=== PATIENT | male | born 1995 | race Caucasian/White ===

== ENCOUNTER 2024-11-30 17:00 | Emergency (ER) | payer MEDICAID ==
[~2024-11-30] VITALS: Ht 170.2 cm; Wt 65.0 kg
[2024-11-30 17:01] VITALS: O2SAT 98
[2024-11-30 19:58] LABS: BASOPHILS % 0.4 % (0.0-2.0); EOSINOPHILS % 0.2 % (0.0-5.0); HEMATOCRIT. 44.4 % (42.0-52.0); HEMOGLOBIN. 14.8 g/dL (14.0-18.0); LYMPHOCYTES % 10.7 % (20.0-50.0); MEAN CORPUSCULAR HEMOGLOBIN 30.6 pg (28.0-32.0); MEAN CORPUSCULAR HGB CONC 33.4 g/dL (31.0-37.0); MEAN CORPUSCULAR VOLUME 91.4 fL (80.0-94.0); MEAN PLATELET VOLUME 7.9 fl (7.4-10.4); MONOCYTES % 3.7 % (2.0-8.0); PLATELET 311 x1000/uL (130-400); RED BLOOD CELL COUNT 4.86 mill/uL (4.7-6.1); WHITE BLOOD COUNT 13.1 x1000/uL (4.5-11.0)
[2024-11-30 20:04] LABS: CARBON DIOXIDE 24 mEq/L (21-32); CHLORIDE 106 mEq/L (98-107); POTASSIUM 3.6 mEq/L (3.5-5.1); SODIUM 139 mEq/L (136-145)
[2024-11-30 20:05] LABS: CALCIUM 9.8 mg/dL (8.7-10.4)
[2024-11-30 20:09] LABS: CREATININE 0.8 mg/dL (0.6-1.3); GLUCOSE 106 mg/dL (70-105)
[2024-11-30 20:10] LABS: UREA NITROGEN BLOOD 7 mg/dL (9-23)
[2024-11-30 20:11] LABS: TROPONIN I HIGH SENSITIVITY 4 ng/L (3.0-53)
[2024-11-30 20:12] LABS: PHOSPHORUS 2.7 mg/dL (2.5-4.9)
[2024-11-30 20:36] VITALS: BP 139/95; PULSE 83; RESP 20; TEMP 37; O2SAT 98
[2024-12-01] MEDS ORDERED: IBUP-2029 MT (06:07)
== END 2024-11-30 20:44 | disposition home or self-care (01) ==
LOC: ER 17:00
DX: F12.10 Cannabis abuse, uncomplicated (principal); F41.1 Generalized anxiety disorder
CPT/HCPCS: 36415; 71045; 80048; 80320; 83735; 84100; 84484; 85025; 99284; G0480

== ENCOUNTER 2024-12-01 01:16 | Emergency (ER) | payer MEDICAID ==
[~2024-12-01] VITALS: Ht 167.6 cm; Wt 80.0 kg
[2024-12-01 01:29] VITALS: O2SAT 99
[2024-12-01] MEDS: IBUPROFEN 600MG TABLET PO ONE (02:13)
[2024-12-01] MEDS ORDERED: IBUP-2029 MT (06:07)
[2024-12-01 06:20] VITALS: BP 141/76; PULSE 66; RESP 17; TEMP 36.8; O2SAT 99
== END 2024-12-01 06:20 | disposition home or self-care (01) ==
LOC: ER 01:16
DX: M79.10 Myalgia, unspecified site (principal); F41.9 Anxiety disorder, unspecified; R42 Dizziness and giddiness
CPT/HCPCS: 99282

== ENCOUNTER 2025-02-18 08:09 | Emergency (ER) | payer MEDICAID ==
[~2025-02-18] VITALS: Ht 170.2 cm; Wt 73.0 kg
[~2025-02-18 08:09] MED LIST: IBUP-2029 MT
[2025-02-18 08:14] VITALS: O2SAT 100
[2025-02-18] MEDS: MORPHINE SULFATE 4 MG/ML INJ (FOR IV/IM USE) IV STA (08:49)
[2025-02-18] MEDS ORDERED: IBUP-2028 PO (09:47)
[2025-02-18 10:17] VITALS: BP 127/66; PULSE 69; RESP 16; TEMP 36.8; O2SAT 100
== END 2025-02-18 10:18 | disposition home or self-care (01) ==
LOC: ER 08:09
DX: M24.411 Recurrent dislocation, right shoulder (principal)
CPT/HCPCS: 73030; 96374; 99283; J2270; Z7610 ×3; A4565; A4606